=== PATIENT | female | born 1990 | race Caucasian/White ===

== ENCOUNTER 2023-05-19 20:02 | Emergency (ER) | payer MEDICAID ==
[~2023-05-19] VITALS: Ht 154.9 cm; Wt 70.9 kg
[2023-05-19 20:08] VITALS: TEMP 98
[2023-05-20 00:26] LABS: Basophils # (auto) 0.1 10 ^3/uL (0-0.2); Basophils % (auto) 0.8 % (0.0-2.0); Eosinophils # (auto) 0 10 ^3/uL (0-0.8); Eosinophils % (auto) 0.5 % (0.0-7.0); Hemoglobin 13.4 g/dL (12.2-16.2); Lymphocytes % (auto) 28.4 % (10.0-50.0); Mean Corpuscular Hgb Conc. 33.6 g/dL (32.0-36.0); Mean Corpuscular Volume 86.4 fL (80.0-100.0); Monocytes # (auto) 0.4 10 ^3/uL (0-1.3); Monocytes % (auto) 5.6 % (0.0-12.0); Neutrophils # (auto) 4.6 10 ^3/uL (1.6-8.6); Neutrophils % (auto) 64.7 % (37.0-80.0); Nucleated Red Blood Cells % 0.1 %; Red Blood Cells 4.63 10^6/uL (4.0-5.20); Red Cell Distribution Width 12.7 % (11.8-14.3); White Blood Cell 7.1 10^3/uL (4.4-10.8)
[2023-05-20 00:30] VITALS: BP 133/60; PULSE 98; RESP 16; O2SAT 97
[2023-05-20 00:44] LABS: Alanine Aminotransferase 35 U/L (7-40); Albumin 4.6 g/dL (3.2-4.8); Alkaline Phosphatase 87 U/L (46-116); Anion Gap 8.2 (5-15); Aspartate Aminotransferase 18 U/L (13-40); BUN/Creatinine Ratio 8.6 (10.0-20.0); Bilirubin, Total 0.3 mg/dL (0.2-1.0); Blood Urea Nitrogen 6 mg/dL (9-23); CRP High Sensitivity 0.93 mg/dL (<1.0); Calcium 9.4 mg/dL (8.5-10.1); Carbon Dioxide 22.8 mmol/L (20-30); Chloride 106 mmol/L (98-107); Glucose 91 mg/dL (74-106); Potassium 3.8 mmol/L (3.5-5.1); Sodium 137 mmol/L (136-145); Total Protein 7.7 g/dL (5.7-8.2)
[2023-05-20] MEDS ORDERED: predniSONE 20 MG TAB PO ONE (00:45)
[2023-05-20] MEDS ORDERED: ACYCLOVIR 400 MG TAB PO ONE (00:45)
[2023-05-20] MEDS ORDERED: ACYC1TAB3 PO (01:14)
[2023-05-20] MEDS ORDERED: PRED20TA2 PO (01:14)
== END 2023-05-20 01:28 | disposition home or self-care (01) ==
LOC: ER 20:02
DX: B02.9 Zoster without complications (principal); R59.1 Generalized enlarged lymph nodes; Z79.899 Other long term (current) drug therapy
CPT/HCPCS: 36415; 70487; 80053; 83605; 85025; 86141; 87040; 99285; J7512; Q9967